=== PATIENT | female | born 1950 | race Caucasian/White ===

== ENCOUNTER 2016-06-17 09:18 | Inpatient (IN) | payer OTHER ==
[2016-06-17] VITALS (10 sets, daily range): BP systolic 108–171; BP diastolic 52–79
[~2016-06-17] VITALS: Ht 152.4 cm; Wt 63.6 kg
[~2016-06-17 09:18] MED LIST: AMOXICILLIN875 MG PO; INDOCIN25 MG PO; MOTRIN600 MG PO; ZITHROMAX Z-PA250 MG PO
[2016-06-17] MEDS ORDERED: BUSPAR10 MG PO (09:50)
[2016-06-17] MEDS ORDERED: CITALOPRAM HBR20 MG PO (09:51)
[2016-06-17] MEDS ORDERED: COMBIVENT RESPIM4 GM IH (09:52)
[2016-06-17] MEDS ORDERED: GABAPENTIN300 MG PO (09:52)
[2016-06-17 10:27] LABS: HEMATOCRIT 22.5 % (36.0-46.0); MCH 21.4 PG (29.0-34.0); MCHC 29.3 G/DL (30.0-36.0); MCV 73.1 FL (83-99); MEAN PLAT.VOLUME 9.9 uM^3 (9.5-12.4); PLATELET COUNT 570 K/uL (156-360); RBC DIS.WIDTH-CV 15.2 % (11.8-14.6); RBC DIS.WIDTH-SD 40.6 % (39-53); RED BLOOD COUNT 3.08 M/uL (3.80-5.20); WHITE BLOOD COUNT 9.4 K/uL (4.1-10.2)
[2016-06-17 10:33] LABS: CHLORIDE 110 mEq/L (99-109); POTASSIUM 4.5 mEq/L (3.7-5.4); SODIUM 140 mEq/L (136-147)
[2016-06-17 10:34] LABS: D-DIMER ELISA 0.65 mg/L FEU (< 0.57); GLUCOSE 94 mg/dL (70-99)
[2016-06-17 10:36] LABS: ANION GAP 12 MEQ/L (2-14)
[2016-06-17 10:38] LABS: GFR ESTIMATE (CALCULATED) > 59 mL/min/
[2016-06-17 10:39] LABS: UREA NITROGEN (BUN) 18 mg/dL (9-23)
[2016-06-17 10:43] LABS: TROP-I INTERPRETATION NEGATIVE; TROPONIN-I < 0.01 ng/mL (0.0-0.30)
[2016-06-17] MEDS ORDERED: ADVIL,NUPRIN,M200 MG PO (11:47)
[2016-06-17] MEDS ORDERED: TRAZODONE HCL50 MG PO (11:48)
[2016-06-17] MEDS ORDERED: BENADRYL25 MG PO (11:48)
[2016-06-17] MEDS ORDERED: SUDAFED 12-HOU120 MG PO (11:49)
[2016-06-17 12:13] LABS: FERRITIN 2 NG/ML (10-291)
[2016-06-17 14:47] LABS: ALKALINE PHOSPHATASE 69 IU/L (3-129); DIRECT BILIRUBIN 0.1 mg/dL (0.0-0.3); SAMPLE HEMOLYSIS CHECK 0; SAMPLE ICTERIC CHECK 0; SAMPLE LIPEMIA CHECK 1; TOTAL BILIRUBIN 0.4 MG/DL (0.0-1.0)
[2016-06-17 20:25] LABS: HEMATOCRIT 27.7 % (36.0-46.0)
[2016-06-18] VITALS (9 sets, daily range): BP systolic 100–174; BP diastolic 53–79
[2016-06-18 08:53] LABS: HEMATOCRIT 28.8 % (36.0-46.0); MCV 78.3 FL (83-99)
[2016-06-18 09:17] LABS: PROTHROMBIN TIME 10.6 (9.2-11.2)
[2016-06-18 20:35] LABS: HEMATOCRIT 29.6 % (36.0-46.0); MCV 78.3 FL (83-99)
[2016-06-19 00:30] VITALS: BP 107/53
[2016-06-19 00:57] VITALS: BP 100/53
[2016-06-19 06:21] LABS: EOSINOPHIL (%) 3.1 % (0-5); EOSINOPHIL COUNT 0.2 K/uL (0-0.3); HEMATOCRIT 31.4 % (36.0-46.0); IMMATURE GRANULOCYTE (%) 0.3 % (0.0-0.7); LYMPHOCYTE COUNT 1.6 K/uL (1.0-2.8); MCH 24.4 PG (29.0-34.0); MCHC 31.2 G/DL (30.0-36.0); MCV 78.1 FL (83-99); MEAN PLAT.VOLUME 9.3 uM^3 (9.5-12.4); MONOCYTE (%) 10.8 % (3-12); MONOCYTE COUNT 0.8 K/uL (0-0.8); NEUTROPHIL (%) 64.8 % (45-76); PLATELET COUNT 456 K/uL (156-360); RBC DIS.WIDTH-CV 16.9 % (11.8-14.6); RBC DIS.WIDTH-SD 48.5 % (39-53); WHITE BLOOD COUNT 7.7 K/uL (4.1-10.2)
[2016-06-19 06:48] LABS: ANION GAP 9 MEQ/L (2-14); CHLORIDE 109 MEQ/L (99-109); GFR ESTIMATE (CALCULATED) > 59 mL/min/; GLUCOSE 98 mg/dL (70-99); POTASSIUM 4.2 MEQ/L (3.7-5.4); SAMPLE HEMOLYSIS CHECK 0; SAMPLE ICTERIC CHECK 0; SAMPLE LIPEMIA CHECK 0; SODIUM 141 MEQ/L (136-147); UREA NITROGEN (BUN) 17 mg/dL (9-23)
[2016-06-19 07:15] LABS: RED BLOOD COUNT 4.02 M/uL (3.80-5.20)
[2016-06-19 07:32] VITALS: BP 149/71
[2016-06-19 11:06] VITALS: BP 137/72
[2016-06-19] MEDS ORDERED: NICOTINE PATCH1 EAC2 TD (13:26)
[2016-06-19] MEDS ORDERED: PANTOPRAZOLE SO40 MG PO (13:27)
[2016-06-19] MEDS ORDERED: FOLIC ACID1 MG PO (13:27)
[2016-06-19] MEDS ORDERED: THIAMINE HCL100 MG PO (13:28)
== END 2016-06-19 14:35 | disposition home or self-care (01) | DRG 384 ==
LOC: EME 09:18 → EDOF 12:47 → 5SOUTH 12:47 → EDOF 13:14 → 5SOUTH 14:44
PROVIDERS: Emergency Medicine; Hospitalist; Internal Medicine; Internal Medicine Gastroenterology
PROC: 30233N1 Transfusion of Nonautologous Red Blood Cells into Peripheral Vein, Percutaneous Approach (ICD-10-PCS; principal; 2016-06-17)
PROC: 0DB78ZX Excision of Stomach, Pylorus, Via Natural or Artificial Opening Endoscopic, Diagnostic (ICD-10-PCS; 2016-06-18)
DX: K25.9 Gastric ulcer, unspecified as acute or chronic, without hemorrhage or perforation (principal); D50.9 Iron deficiency anemia, unspecified; F32.9 Major depressive disorder, single episode, unspecified; F10.10 Alcohol abuse, uncomplicated; F17.210 Nicotine dependence, cigarettes, uncomplicated; K44.9 Diaphragmatic hernia without obstruction or gangrene; G62.9 Polyneuropathy, unspecified; K76.89 Other specified diseases of liver
CPT/HCPCS: 71020; 76705; 80048; 80076; 82607; 82728; 82746; 83921 90; 84443; 84466; 84484; 85014; 85018; 85025; 85027; 85379; 85610; 86850; 86900; 86901; 86920; 88305; 88342 TC; 93005; 93975; 94640; 94640 76; 94760; 99202; 99281; 99285; J3010; J3411; J7050; P9016